=== PATIENT | female | born 1965 | race Caucasian/White ===

== ENCOUNTER 2020-04-15 09:10 | Emergency (ER) | payer BC, SELFPAY ==
[~2020-04-15] VITALS: Ht 157.5 cm; Wt 72.1 kg
[2020-04-15 09:20] VITALS: BP_SYST 122
[2020-04-15] MEDS ORDERED: NACL 0.9% 1,000 ML IV ONE (09:20)
--- NOTE | 2020-04-15 09:20 | NUR ---
Patient to ER bed 7 to gown for evaluation. Side rails up. Report given to CELINE Wilson.
--- NOTE | 2020-04-15 09:27 | NUR ---
Patient ambulatory to restroom. Patient refusing urinary catheter at this time, concerned it will cause more pain. Patient given cup and 3 wipes, instructions given for clean catch urine.
[2020-04-15] MEDS ORDERED: KETOROLAC TROMETHAMINE 30 MG VIAL IVP ONE (09:30)
--- NOTE | 2020-04-15 09:30 | NUR ---
Pt walked in to ER with c/o abd pain 6/10 and vaginal bleeding x3 months. Reports s/p uterine ablation. V/S stable, reports fever started last night. Pt is afebrile in ER. Currently resting in bed, will continue to monitor.
--- NOTE | 2020-04-15 09:35 | NUR ---
ER Dr. Kaye at bedside examining patient.
--- NOTE | 2020-04-15 09:40 | NUR ---
Urine collected and sent to lab
--- NOTE | 2020-04-15 09:45 | NUR ---
# 20 gauge angiocath placed to RFA. Use of asceptic technique. Opsite placed over site. Blood return noted. Blood for lab drawn from site. Flushed with 10 cc of normal saline. No evidence of infiltration noted. Patient tolerated well.
[2020-04-15] MEDS ORDERED: IOHEXOL 100 ML IV ONE (10:03)
[2020-04-15 10:07] LABS: BASOPHILS # (AUTO) 0.1 K/uL (0.0-0.2); BASOPHILS % (AUTO) 0.4 % (0.0-2.0); HEMATOCRIT 35.3 % (36-48); HEMOGLOBIN 11.6 g/dL (12.0-16.0); LYMPHOCYTES # (AUTO) 1.2 K/uL (1.0-5.5); LYMPHOCYTES % (AUTO) 5.6 % (20.5-51.5); MEAN CORPUSCULAR HEMOGLOBIN 28 pg (27-31); MEAN CORPUSCULAR HGB CONC 33 % (32-36); MEAN CORPUSCULAR VOLUME 85 fL (79.0-98.0); MONOCYTES # (AUTO) 1.3 K/uL (0.0-1.0); MONOCYTES % (AUTO) 5.9 % (1.7-9.3); NEUTROPHILS # (AUTO) 19.8 K/uL (1.8-7.7); NEUTROPHILS % (AUTO) 88.1 % (40.0-70.0); PLATELET COUNT (AUTO) 263 K/uL (130-430); RED BLOOD CELL COUNT(AUTO) 4.14 MIL/uL (4.2-6.2); WHITE BLOOD COUNT (AUTO) 22.5 K/uL (4.8-10.8)
[2020-04-15 10:29] LABS: CALCIUM 8.4 mg/dL (8.4-11.0); CREATININE 0.75 mg/dL (0.55-1.30); POTASSIUM 3.3 mmol/L (3.5-5.1)
--- NOTE | 2020-04-15 10:30 | NUR ---
Patient transported to radiology via wheelchair, accompanied by staff.
[2020-04-15 10:35] LABS: ALBUMIN 3.5 g/dL (3.4-4.8); TOTAL BILIRUBIN 0.5 mg/dL (0.0-1.0)
[2020-04-15 11:23] LABS: BILIRUBIN,URINE NEGATIVE (NEGATIVE); BLOOD, URINE NEGATIVE (NEGATIVE); COLOR,URINE YELLOW (YELLOW); GLUCOSE,URINE NEGATIVE (NEGATIVE); KETONES,URINE NEGATIVE (NEGATIVE); LEUKOCYTE ESTERASE ,URINE NEGATIVE (NEGATIVE); NITRITE, URINE NEGATIVE (NEGATIVE); PH,URINE 5.5 (5.0-8.0); PROTEIN URINE TRACE (NEGATIVE); UROBILINOGEN,URINE 0.2 (0.2-1.0)
[2020-04-15 11:24] LABS: CLARITY/URINE SLIGHTLY HAZY (CLEAR)
--- NOTE | 2020-04-15 11:36 | NUR ---
Nasal swab obtianed to test for Covid. Pt tolerated well.
[2020-04-15] MEDS ORDERED: AZITHROMYCIN 250 MG TABLET PO ONE (14:30)
[2020-04-15] MEDS ORDERED: cefTRIAXone 1 GM VIAL IM ONE (14:30)
[2020-04-15] MEDS ORDERED: metroNIDAZOLE 500 MG TABLET PO ONE (14:30)
[2020-04-15] MEDS ORDERED: LIDOCAINE 1%, 20 ML MDV 20 ML ONE (14:52)
[2020-04-15] MEDS ORDERED: AZITHROMYCIN 250 MG TABLET ONE (15:04)
--- NOTE | 2020-04-15 15:08 | NUR ---
MEDICATED WITH ABX ORDERED
--- NOTE | 2020-04-15 15:15 | NUR ---
Patient given written and verbal discharge instructions and verbalizes understanding. ER MD discussed with patient the results and treatment provided. Patient in stable condition. ID arm band removed. IV catheter removed intact and dressing applied, no active bleeding. Rx of Tramadol given. Patient educated on pain management and to follow up with PMD. Pain Scale 3. Opportunity for questions provided and answered. Medication side effect fact sheet provided.
[2020-04-15 15:23] VITALS: BP_SYST 122
[2020-04-18 01:16] LABS: CHLAMYDIA TRACHOMATIS NAA Negative (Negative); NEISSERIA GONORRHOEAE NAA Negative (Negative)
== END 2020-04-15 13:27 | disposition home or self-care (01) ==
LOC: EEVIPCON 09:10 → SED 09:10
DX: N93.9 Abnormal uterine and vaginal bleeding, unspecified (principal); N89.8 Other specified noninflammatory disorders of vagina; R10.2 Pelvic and perineal pain; Z20.828 Contact with and (suspected) exposure to other viral communicable diseases
CPT/HCPCS: 36415; 74177; 76830; 76857; 80053; 81003; 83605; 83690; 85025; 87040; 87110; 87205; 87210; 87491; 87591; 96372; 96374; 99285; C9803; J0696; J1885; J2001; J7030; Q0144; Q9967; U0003